=== PATIENT | female | born 1990 | race Caucasian/White ===

== ENCOUNTER 2018-07-17 11:04 | Emergency (ER) | payer MEDICAID, OTHER ==
[2018-07-17] MEDS ORDERED: IBUPROFEN 600 MG TAB PO ONE (11:58)
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
[2018-07-17 12:33] VITALS: BP 118/72
== END 2018-07-17 12:33 | disposition home or self-care (01) ==
LOC: CED 11:04
DX: S46.012A Strain of muscle(s) and tendon(s) of the rotator cuff of left shoulder, initial encounter (principal); S40.012A Contusion of left shoulder, initial encounter; V18.0XXA Pedal cycle driver injured in noncollision transport accident in nontraffic accident, initial encounter; Y93.55 Activity, bike riding; Y92.482 Bike path as the place of occurrence of the external cause; Y99.8 Other external cause status
CPT/HCPCS: 73030-PO; A4565

== ENCOUNTER → 2018-08-15 | Outpatient (CLI) | payer MEDICAID | LOC: FIMAGING 07:29 | PROVIDERS: ATTEND Registered Nurse | DX: Z30.431 Encounter for routine checking of intrauterine contraceptive device (principal); N83.201 Unspecified ovarian cyst, right side; N83.01 Follicular cyst of right ovary ==